=== PATIENT | male | born 1975 | race Caucasian/White ===

== ENCOUNTER 2022-02-17 08:54 | Emergency (ER) | payer OTHER, SELFPAY ==
--- NOTE | ~2022-02-17 | CT_ITS ---
EXAMINATION: CT abdomen pelvis w con EXAM DATE: 02/17/2022 10:09 INDICATION: Lower abd pain since Thursday. TECHNIQUE: Spiral CT of the abdomen and pelvis was performed following intravenous injection of 100 m L Omnipaque 350. Axial, coronal and sagittal images of the abdomen and pelvis were reviewed. The do se-length product (DLP) for this examination was 488.73 mGy-cm. The exposure was tailored according to patient size (auto mA exposure control), and iterative reconstruction (ASIR) was used as additiona l dose reduction technique. There is no prior study for comparison. FINDINGS: There is a subcutaneous circumscribed region which appears to contain fluid, have surroundi ng inflammation, measuring about 1.3 cm in diameter, midline about midway between the umbilicus and t he pubis symphysis, could be small abscess or infected sebaceous cyst. Axial image 148, sagittal imag e 77. Please clinically correlate. The liver, spleen, adrenal glands and pancreas are unremarkable. Gallbladder is unremarkable. No bi liary obstruction. Portal and splenic veins are patent. Kidneys enhance symmetrically. There is no hydronephrosis. The prostate is unremarkable. The bladder is unremarkable. There is no retroperi toneal or pelvic lymphadenopathy. The appendix is normal. The stomach and small bowel are unremarkable. There is expected amount of c olonic stool. No free intraperitoneal gas. The heart is normal in size. There are no pericardial or pleural effusions. The lung bases are unremarkable. There are no osteoblastic or osteolytic les ions identified. IMPRESSION: 1. Subcutaneous anterior midline fluid pocket with surrounding inflammation, clinical correlation. 2. No acute intra-abdominal findings. Reviewed, dictated and finalized at location A. IMPRESSION: 1. Subcutaneous anterior midline fluid pocket with surrounding inflammation, c linical correlation. 2. No acute intra-abdominal findings.
[2022-02-17 09:09] VITALS: BP 158/71; PULSE 77; RESP 16; TEMP 36.6; O2SAT 99
[2022-02-17 09:41] LABS: Basophils Percent Auto 0.5 % (0.2-1.2); Eosinophils Absolute Auto 0.2 K/mm3 (0-0.3); Eosinophils Percent Auto 2.4 % (0-4.4); Hematocrit 46.3 % (42.0-52.0); Hemoglobin 15.1 g/dL (14.0-18.0); Immature Granulocyte Absolute 0.02 K/mm3 (0.00-0.031); Immature Granulocyte Percent A 0.2 % (0-0.5); Lymphocytes Absolute Auto 0.83 K/mm3 (0.9-3.2); Lymphocytes Percent Auto 10.3 % (18.3-44.2); Mean Corpuscular HGB Conc 32.6 g/dl (32-36); Mean Corpuscular Hemoglobin 30.3 pg (26-34); Mean Platelet Volume 10.9 fl (7.4-10.4); Monocytes Absolute Auto 0.7 K/mm3 (0.1-0.6); Monocytes Percent Auto 8.7 % (2.6-8.5); Neutrophils Absolute Auto 6.3 K/mm3 (1.3-6.7); Neutrophils Percent Auto 77.9 % (45.5-73.1); Platelet Count Result 217 k/mm3 (150-375); Red Blood Count 4.98 M/mm3 (4.6-6.20); Red Cell Distribution Width 12.6 % (11.5-14.5)
[2022-02-17] MEDS: KETOROLAC 30 MG/ML VIAL (*BKC) IV PUSH (09:44)
[2022-02-17 09:53] LABS: Alanine Aminotransferase 25 U/L (4-50); Albumin Level 4.5 g/dL (3.5-5.1); Alkaline Phosphatase 65 U/L (38-126); Anion Gap 7 mmol/L (8-16); Aspartate Amino Transferase 26 U/L (17-59); Bilirubin,Total 0.7 mg/dL (0.2-1.3); Blood Urea Nitrogen 14 mg/dL (9-20); Calcium 9.2 mg/dL (8.4-10.2); Carbon Dioxide 28 mmol/L (22-30); Chloride 105 mmol/L (98-107); Estimated CRCL calculation 82 ml/min; Estimated Glomerular Filt Rate > 60; Glucose 83 mg/dL (65-110); Lipase 96 U/L (23-300); Sodium 140 mmol/L (137-145)
[2022-02-17 09:58] LABS: Appearance Urine Clear (Clear); Bilirubin Urine Negative (Negative); Blood Urine Negative (Negative); Color Urine Yellow (Yellow); Glucose Urine UA Negative (Negative); Ketones Urine Negative (Negative); Leukocyte Esterase Ur Negative LEU/UL (Negative); Nitrate Urine Negative (Negative); Protein Urine Negative (Negative); Specific Grav Ur 1.025 (1.001-1.035); Urobilinogen Urine 0.2 mg/dL (<2.0); pH Urine 6.5 (5.0-9.0)
[2022-02-17 10:37] LABS: Add Urine Microscopic? NO
[2022-02-17] MEDS: CEPHALEXIN 500 MG CAPSULE PO (10:50)
--- NOTE | 2022-02-17 10:52 | ED.ABDPAIN ---
HPI - Abdominal Pain General Chief Complaint: Abdominal Pain Stated Complaint: abdominal pain Time Seen by Provider: 02/17/22 09:22 Source: RN notes reviewed History of Present Illness HPI narrative: Patient presents emergency department from home for abdominal pain. Patient states symptoms of been ongoing for the past 3 days the pain is located in the lower anterior abdominal wall he states there is an area of erythema and swelling in this region he denies any fevers or chills nausea vomiting diarrhea or any other symptoms states he not taking pain medication to Related Data Allergies Allergy/AdvReac Type Severity Reaction Status Date / Time No Known Allergies Allergy Verified 02/17/22 09:26 Review of Systems Review of Systems: Gen.: Denies fevers or chills Eyes: Denies eye pain or visual change ENT: Denies congestion Respiratory: Denies shortness of breath CV: Denies chest pain GI: Reports abdominal pain, denies nausea, emesis or diarrhea Musculoskeletal: Denies back pain or muscle pain Neuro: Denies numbness, tingling, weakness or focal weakness Skin: Denies rash Except as documented, all other systems reviewed and negative [facility] Past Medical History Medical History Screening for lipid disorders Screening for prostate cancer Family History Family History Mother Hypertension Grandparent Cerebrovascular accident Carcinoma of colon Social History Social History Smoking status: Never smoker Alcohol intake: current Exam Narrative: APPEARANCE: No acute distress, nontoxic, resting in bed HEENT: Normocephalic, atraumatic, OMM RESPIRATORY: No respiratory distress, clear to auscultation bilaterally with no rhonchi wheezing or rales CARDIOVASCULAR: RRR s murmur ABDOMINAL: Soft nondistended tender palpation in lower midline abdomen with area of firmness and erythema no active drainage the hair is shaved around this region no tenderness right upper quadrant, left right lower quadrant left lower quadrant no rebound or guarding MUSCULOSKELETAl: Moves all extremities. No clubbing, cyanosis or edema. NEURO: Awake and alert. Following commands, speech normal, no focal deficits SKIN:: Warm, dry. Normal Color PSYCHIATRIC: Normal affect/mood Procedures Abscess I/D abdomen: Abcess I&D Additional Comments: Verbal consent was obtained prior to procedure. The abscess was cleaned with Betadine and lidocaine 1% with epi was used for anesthesia. The abscess was incised with an 11 blade. There was return of approximately 2-3 mL of thick purulent drainage. Curved hemostats were used to break up loculations, the wound was irrigated with normal saline. Following a sterile dressing was applied. Patient tolerated the procedure well Course Course Emergency Course: Discussed with patient results of workup and diagnosis. Discussed need for follow-up with primary care, proper use of medication, and reasons to return to the emergency department. Patient understands and agrees to current treatment plan Vital Signs Vital signs: Vital Signs Temperature 97.9 F 02/17/22 09:09 Pulse Rate 77 02/17/22 09:09 Respiratory Rate 16 02/17/22 09:09 Blood Pressure 158/71 H 02/17/22 09:09 Pulse Oximetry 99 02/17/22 09:09 Temperature 97.9 F 02/17/22 09:09 Pulse Rate 77 02/17/22 09:09 Respiratory Rate 16 02/17/22 09:09 Blood Pressure 158/71 H 02/17/22 09:09 Pulse Oximetry 99 02/17/22 09:09 MDM - Abdominal Pain Lab Data Result diagrams: 02/17/22 09:28 02/17/22 09:28 Labs: Lab Results 02/17/22 02/17/22 02/17/22 Range/Units 09:28 09:28 09:42 WBC 8.0 (4.5-10.0) K/mm3 RBC 4.98 (4.6-6.20) M/mm3 Hgb 15.1 (14.0-18.0) g/dL Hct 46.3 (42.0-52.0) % MCV 93.0 (80-100) fl MCH 30.3 (26-34) pg
== END 2022-02-17 11:02 | disposition home or self-care (01) ==
PROVIDERS: Emergency Provider Emergency Medicine; PCP Family Medicine
DX: L02.211 Cutaneous abscess of abdominal wall (principal)
CPT/HCPCS: 10061; 36415; 74177; 80053; 81003; 83690; 85025; 96374; 99284; A9270; J1885; Q9967

== ENCOUNTER 2023-03-12 07:56 | Day surgery (SDC) | payer OTHER, SELFPAY ==
[2023-02-05 13:41] VITALS: BMI 25.6
[2023-03-02 10:26] VITALS: BMI 24.4
--- NOTE | 2023-03-11 14:56 | WPDANESEPPF ---
Anes - Initial Pre Proc Eval Procedure: Operation Date: 03/12/23 09:30 Proposed Procedures p Screening Colonoscopy - Neftaly Douglas MD Date/Time: 03/11/23 14:56 Surgeon: Neftaly Douglas MD Pre Op Diagnosis: Neoplasm Screening Patient Data Age: 47 Gender: M Height: 1.85 m Weight: 84 kg Allergies Allergy/AdvReac Type Severity Reaction Status Date / Time No Known Allergies Allergy Verified 03/02/23 10:25 Home Medications Medication Instructions Recorded Confirmed Type No Home Medications 03/02/23 03/02/23 History Patient hx anesthesia problems: none Family hx anesthesia problems: none Results Review: All pre-operative results and documents have been reviewed as part of the pre-operative evaluation. [facility] Past Medical History Medical History BMI 26.0-26.9,adult Screening for lipid disorders Screening for prostate cancer Family History Family History (Updated 01/14/23 @ 07:51 by SIENA Kim) Mother Hypertension Grandparent Cerebrovascular accident Carcinoma of colon Father No problems noted. Sibling No problems noted. 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 Informed Consent: The patient's anesthetic plan and its attendant risks and benefits were discussed with the patient/family/POA. Questions were solicited and answers provided to the satisfaction of the patient/family/POA.
[2023-03-12 08:15] VITALS: BP 105/80; PULSE 74; RESP 20; TEMP 36.8; O2SAT 100
[2023-03-12] MEDS: LACTATED RINGERS 1,000 ML 150 ML IV CONT (08:36)
--- NOTE | 2023-03-12 09:20 | PM.HPGS ---
History of Present Illness History of Present Illness Consent: Risks, benefits, and alternatives have been discussed and questions answered. Patient agrees to proceed with procedure. Chief complaint: Neoplasm Screening Narrative: Trevor Traylor is a 47 year old male here for first screening colonoscopy Review of Systems Constitutional: Constitutional: Denies headache(s) and Denies weakness Eyes: Eyes: Denies blurry vision ENT: Reports Normal hearing present, Denies headache(s) and Denies neck pain Cardiovascular: Cardiovascular: Denies chest pain and Denies dyspnea Respiratory: Respiratory: Denies dyspnea Gastrointestinal: Gastrointestinal: Reports no additional gastrointestinal complaints Genitourinary: Genitourinary: Denies dysuria Musculoskeletal: Musculoskeletal: Denies neck pain Integumentary/Breasts: Skin/Breast: Denies dry skin Neurologic: Reports Normal hearing present, Denies headache(s) and Denies weakness Psychiatric: Psychiatric: Denies anxiety Endocrine: Endocrine: Denies change in body appearance Hematologic/Lymphatic: Hematologic/Lymphatic: Denies easy bleeding Allergic/Immunologic: Allergic/Immunologic: Denies urticaria PMF Past Medical History Medical History BMI 26.0-26.9,adult Screening for lipid disorders Screening for prostate cancer Family History Family History (Updated 01/14/23 @ 07:51 by SIENA Kim) Mother Hypertension Grandparent Cerebrovascular accident Carcinoma of colon Father No problems noted. Sibling No problems noted. 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 Gender identity (if verbalized by the patient): Male Spiritual care concerns: No Meds Home Medications and Allergies Home Medications Medication Instructions Recorded Confirmed Type No Home Medications 03/02/23 03/12/23 History Allergies Allergy/AdvReac Type Severity Reaction Status Date / Time succinylcholine Allergy Unknown Verified 03/12/23 08:35 Vital Signs Vital Signs - 24 hr 03/12/23 08:15 Temperature 98.3 F Pulse Rate 74 Respiratory Rate 20 Blood Pressure 105/80 Pulse Oximetry 100 Oxygen Delivery Room Air Exam Const: General: comfortable and no acute distress HENMT: Face/Nose/Sinus: Normal nares present Eyes: General: appearance normal, both eyes and all related structures Neck: Neck: no JVD Resp: Auscultation: clear to auscultation bilaterally Cardio: Rate: regular rate Rhythm: regular rhythm GI: Inspection: non-distended GI Palp: Yes Soft to palpation Skin: General skin exam: normal color Neuro: General: gait normal Speech: normal speech Extrem: General: normal to inspection Psych: Mental Status: mental status grossly normal Assessment and Plan Assessment and plan (1) Special screening for malignant neoplasms, colon: Code(s): Z12.11 - Encounter for screening for malignant neoplasm of colon Status: Acute Assessment and Plan: colonoscopy
[2023-03-12 09:49] VITALS: BP 103/64; PULSE 77; RESP 16; O2SAT 100
[2023-03-12 09:59] VITALS: BP 108/69; PULSE 53; RESP 16; O2SAT 100
[2023-03-12 10:09] VITALS: BP 111/76; PULSE 55; RESP 16; O2SAT 100
--- NOTE | 2023-03-17 08:43 | WPDANESPN ---
Anes - Prog Note Post-Op Date/Time: 03/17/23 08:43 Cardiovascular status: normal Respiratory status: normal Airway patency: baseline Mental status: baseline Post-Op hydration status: normal Vital Signs: Last Vital Signs Temp 36.8 C 03/12/23 08:15 Pulse 55 L 03/12/23 10:09 Resp 16 03/12/23 10:09 BP 111/76 03/12/23 10:09 Pulse Ox 100 03/12/23 10:09 O2 Del Method Room Air 03/12/23 10:09 Pain Score (VAS): 0 Post-procedural complaints: none Patient Feedback: Patient satisfied with anesthetic care.
== END 2023-03-12 10:18 | disposition home or self-care (01) ==
PROVIDERS: PCP Family Medicine; Visit Provider Internal Medicine Gastroenterology
PROC: 0DJD8ZZ Inspection of Lower Intestinal Tract, Via Natural or Artificial Opening Endoscopic (ICD-10-PCS; CPT 45378; principal; 2023-03-12 09:30)
DX: Z12.11 Encounter for screening for malignant neoplasm of colon (principal)
CPT/HCPCS: 45380

== ENCOUNTER 2023-03-12 09:00 | Outpatient (NON) | payer OTHER, SELFPAY | END 2023-03-12 09:01 | disposition home or self-care (01) | LOC: ANHLAB 03-13 09:58 | PROVIDERS: PCP Family Medicine; Visit Provider Internal Medicine Gastroenterology | DX: D12.0 Benign neoplasm of cecum (principal) | CPT/HCPCS: 88305 ==

== ENCOUNTER 2024-04-18 09:32 | Outpatient (CLI) | payer OTHER, SELFPAY ==
--- NOTE | ~2024-04-18 | XR_ITS ---
XR elbow LT min 3V Ordering provider: Cate Rios, PAC History: . S59.902A - Unspecified injury of left elbow, initial enco... . Comparison: None. FINDINGS: BONES: No acute fracture or dislocation. JOINT SPACES: Normal. SOFT TISSUES: Normal. No definite joint effusion. IMPRESSION: No acute osseous abnormality left elbow. Reviewed, dictated and finalized at location A.
== END 2024-04-18 09:33 ==
LOC: MICIMG 09:33
PROVIDERS: PCP Family Medicine; Visit Provider Physician Assistant Medical
DX: S59.902A Unspecified injury of left elbow, initial encounter (principal)
CPT/HCPCS: 73080

== ENCOUNTER 2025-05-02 08:00 | Emergency (ER) | payer OTHER, SELFPAY ==
--- NOTE | 2025-05-02 08:18 | ED_ITS ---
HPI - URI/Sore Throat General Chief Complaint: Upper Respiratory Infection Stated Complaint: headache,nasal drainage Time Seen by Provider: 05/02/25 08:44 Source: patient and RN notes reviewed Mode of arrival: ambulatory Limitations: no limitations History of Present Illness HPI Narrative: 49-year-old male presents with concern for 2 week history of sinus congestion, drainage. Reports he started having facial pressure and yellow sinus drainage, headache. He denies fever, body aches, chills, sweats. He denies sore throat, stomach ache. He reports occasional cough. He has not been taking anything for his symptoms. MD elicited complaint: rhinorrhea and nasal congestion Related Data Allergies Allergy/AdvReac Type Severity Reaction Status Date / Time succinylcholine Allergy Unknown Verified 05/02/25 08:26 Review of Systems Review of Systems: CONSTITUTIONAL: Denies malaise, chills, sweats, or fever. EYES: Denies visual changes, redness, or discharge. ENT: Reports rhinorrhea, congestion, sinus pain. She otalgia and sore throat. CARDIOVASCULAR: Denies chest pain, palpitations, or edema. RESPIRATORY: Denies cough. Denies dyspnea. GASTROINTESTINAL: Denies abdominal pain, nausea, vomiting, diarrhea SKIN: Denies rash or itching. MUSCULOSKELETAL: Denies myalgia. NEUROLOGIC: Denies headache. All systems reviewed & are unremarkable except as noted in HPI and below PMFSH Past Medical History Medical History BMI 26.0-26.9,adult Screening for lipid disorders Screening for prostate cancer Family History Family History Mother Hypertension Grandparent Cerebrovascular accident Carcinoma of colon Father No problems noted. Sibling No problems noted. Social History Social History Smoking status: Never smoker Tobacco type: cigarettes Second hand tobacco smoke exposure: No Alcohol intake: current Drinks per week: 4 Substance use: never Substance use type: does not use Do You Feel Safe in your Home?: Yes Lack of Transportation: No Lack of Food: Never True Current Housing: I Have Housing Concerned About Future Housing: No Difficulty Paying Gas/Electric Bills: No Difficulty Paying for Meds: No Currently Unemployed: No Education: Bachelor's Degree Difficulty w/ Childcare or Family Care: No Living arrangements: with family Occupation/Education: occupation 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 There is no relevant family history pertinent to the presenting complaint Exam Narrative: GENERAL: Well-appearing, well-nourished, and in no acute distress. HEAD: Normocephalic EYES: PERRLA, conjunctivae clear ENT: Nares clear, turbinates edematous and erythematous. Mucous membranes moist. TM pearly mccurdy with dull light reflex bilaterally; no tragal tenderness. Oropharynx not erythematous without lesions. Tonsils not enlarged and without exudate, no drooling, no hoarseness, no trismus, uvula midline. NECK: Supple. No lymphadenopathy CHEST: Clear to auscultation, breath sounds equal. No wheezing, rhonchi, rales, or stridor. No respiratory distress, speaks in full sentences. HEART: Regular rate and rhythm. No murmur heard. SKIN: Warm, dry, no rash. NEURO: Alert and oriented x3. PSYCH: Normal mood and affect Course Course Emergency Course: Patient is aware of diagnosis, understands and agrees to treatment plan. Anticipatory guidance given. Patient agrees to follow-up as directed and is aware of reasons to seek care at the emergency department. Portions of this record may have been created with voice recognition software Level of Care: Express Care Visit Vital Signs Vital signs: Reviewed. MDM - URI/Sore Throat MDM Narrative Medical decision making narrative: Differential diagnosis considered: Hu virus, strep pharyngitis, allergic rhinitis, upper respiratory tract infection, sinusitis, rhinosinusitis, nasopharyngitis. viral pharyngitis, otitis media, otitis externa, pneumonia, bronchitis, viral cough syndrome, viral syndrome, and influenza. Exam findings show no acute concerns or changes; patient is non-toxic appearing and is in no distress. Patient is appropriate for outpatient treatment and follow-up. Lab Data Attestation: I reviewed the patient's lab results. Critical Care Time Critical Care Time Critical Care Time: No Discharge Plan Discharge Clinical Impression: Sinusitis Patient Disposition: Home Condition: Stable Instructions: Antibiotic Form, Sinusitis (ED) Additional Instructions: Take medication as prescribed Nonprescription pain medications, such as acetaminophen (eg, Tylenol) or ibuprofen (eg, Motrin, Advil), are recommended for pain. Flushing the nose and sinuses with a saline solution several times per day has been proven to decrease pain associated with congestion and shorten the duration of symptoms. Nasal steroids (such as Flonase, 2 sprays in each nostril daily) can help to reduce swelling inside the nose, usually within two to three days. These drugs have few side effects and relieve symptoms in most people. Oral decongestants (pseudoephedrine and phenylephrine) may be helpful if you have associated symptoms of ear pain or fullness. Nasal decongestant sprays, including oxymetazoline (Afrin) and phenylephrine (Jeyson-Synephrine), can be used to temporarily treat congestion. However, these sprays should not be used for more than two to three days due to the risk of rebound congestion (when the nose becomes congested constantly unless the medication is used repeatedly), possible addiction, and long-term consequences of frequent use, including persistent nasal dryness and crusting, which is very difficult to treat once it has developed. Medications to thin secretions (such as guaifenesin) may help to clear mucus. Please follow-up with your primary care doctor in the next 1-2 days. If you cannot follow-up with your primary care doctor please go to the ED for any urgent issues. If you have any worsening of symptoms or any other concerns please go to the ED immediately. Patient Language: Albanian Prescriptions: New amoxicillin-pot clavulanate 875-125 mg tablet 1 tablet PO Q12H 10 Days Qty: 20 0RF Follow-up/Referrals: Rony Crowell MD [Primary Care Provider] - Time of Disposition: 08:42
[2025-05-02 08:23] VITALS: BP 122/78; PULSE 68; RESP 16; TEMP 36.6; O2SAT 100
== END 2025-05-02 08:44 | disposition home or self-care (01) ==
PROVIDERS: Emergency Provider Nurse Practitioner; PCP Family Medicine
DX: J32.9 Chronic sinusitis, unspecified (principal)
CPT/HCPCS: 99213; G0463